=== PATIENT | male | born 1985 ===

== ENCOUNTER → 2017-12-03 | Outpatient (REF) ==
[2017-12-03 16:57] LABS: THYROID STIMULATING HORMONE 0.521 uIU/mL (0.465-4.680)
== END ==
LOC: ZLAB.WCH 16:13
PROVIDERS: Family Medicine
DX: Z01.89 Encounter for other specified special examinations (principal)

== ENCOUNTER → 2017-12-07 | Outpatient (REF) | LOC: COL.CARD 07:36 | DX: Z01.818 Encounter for other preprocedural examination (principal) ==

== ENCOUNTER → 2018-05-23 | Outpatient (REF) | LOC: COL.CARD 09:34 | DX: Z01.818 Encounter for other preprocedural examination (principal) ==